=== PATIENT | female | born 1955 | race Caucasian/White ===

== ENCOUNTER → 2016-08-03 | Outpatient (CLI) | payer OTHER | LOC: CIMAGING 07:11 | DX: Z12.31 Encounter for screening mammogram for malignant neoplasm of breast (principal); Z80.3 Family history of malignant neoplasm of breast | CPT/HCPCS: G0202 ==

== ENCOUNTER → 2017-08-28 | Outpatient (CLI) | payer OTHER | LOC: CIMAGING 10:52 | PROVIDERS: ATTEND Family Medicine | DX: Z12.31 Encounter for screening mammogram for malignant neoplasm of breast (principal); Z80.3 Family history of malignant neoplasm of breast ==

== ENCOUNTER → 2018-06-20 | Day surgery (SDC) | payer OTHER ==
[~2018-06-20] MED LIST: LIDO/EPI 1% **for epidural** 30 ML SDV ONE; SODIUM TETRADECYL SULFATE 3% 2 ML VIAL IV ONE
== END | disposition home or self-care (01) ==
LOC: FIMAGING 11:45
PROVIDERS: ATTEND Radiology Diagnostic Radiology
DX: I83.891 Varicose veins of right lower extremity with other complications (principal)

== ENCOUNTER → 2018-07-03 | Outpatient (CLI) | payer OTHER | LOC: FIMAGING 15:26 ==

== ENCOUNTER → 2018-08-30 | Outpatient (CLI) | payer OTHER | LOC: CIMAGING 09:04 | PROVIDERS: ATTEND Family Medicine | DX: Z12.31 Encounter for screening mammogram for malignant neoplasm of breast (principal); Z80.3 Family history of malignant neoplasm of breast ==

== ENCOUNTER 2018-09-08 16:40 | Emergency (ER) | payer OTHER ==
[2018-09-08] MEDS ORDERED: NS 1,000 ML IV ONE (17:11)
[2018-09-08] MEDS ORDERED: ONDANSETRON 4 MG/2 ML VIAL IVP ONE (17:12)
[2018-09-08] MEDS ORDERED: ACETAMINOPHEN 500 MG TAB PO ONE (17:15)
[2018-09-08] MEDS ORDERED: ONDANSETRON 4 MG/2 ML VIAL ONE (17:17)
--- NOTE | 2018-09-08 17:50 | EDPHY ---
H & P Stated Complaint: vomiting, fever, headache Time Seen by Provider: 09/08/18 17:32 HPI/ROS: CHIEF COMPLAINT: Nausea, vomiting, diarrhea. HISTORY OF PRESENT ILLNESS: This is a 63-year-old medically stable woman who felt well last night when she went to bed. However she woke up around 2 in the morning with a sense of nausea and began vomiting. She has had at least 40 min trips to the bathroom to vomit although notably each time she would stay there for a little while. At no point there has been any blood, initially was food and then some foam. There has been no hematemesis or coffee-grounds There is also been some diarrhea however has not been as much. She describes be mushy. There has been no melena or bright lobe rectum. No abdominal pain Shortness school system. Has not had any specific known exposure however nonetheless there is lot get around. No travel outside the country last 3 months, antibiotic use, bad food from other sources, or poor water supply. In general she is healthy does not have a history of recurrent diarrhea. REVIEW OF SYSTEMS: Constitutional: No fever, no chills. Eyes: No discharge. ENT: No sore throat. Cardiovascular: No chest pain, no palpitations. Respiratory: No cough, shortness of breath, or wheezing. Gastrointestinal: See above Genitourinary: No hematuria or frequency. Musculoskeletal: No back pain. Skin: No rashes. Neurological: No headache. A 10 system review of systems was performed and is negative except for the noted findings in the HPI. Source: Patient Exam Limitations: No limitations - Personal History Current Tetanus Diphtheria and Acellular Pertussis (TDAP): Yes - Medical/Surgical History Hx Asthma: No Hx Chronic Respiratory Disease: No Hx Diabetes: No Hx Cardiac Disease: No Hx Renal Disease: No Hx Cirrhosis: No Hx Alcoholism: No Hx HIV/AIDS: No Hx Splenectomy or Spleen Trauma: No Other PMH: appy, - Family History Significant Family History: No pertinent family hx - Social History Smoking Status: Never smoked Alcohol Use: None Drug Use: None - Physical Exam Exam: General Appearance: Alert, no distress. Afebrile. Normal phonation. No respiratory distress. Eyes: Pupils equal and round no pallor or injection. No icterus ENT, Mouth: Mucous membranes moderately dry Pharynx without erythema or exudate. TM Clear. Neck: No adenopathy. Supple. No JVD. Trachea in midline. Respiratory: There are no retractions, lungs are clear to auscultation. Cardiovascular: Regular rate and rhythm, no murmurs Abdomen: Soft, no masses, bowel sounds normal. There is some mild vague tenderness no right lower quadrant without rebound or guarding. Of note, is that she has had her appendix out. Femoral pulses equal. Neurological: Ox3. No motor weakness. Sensation intact. Gait nl. Skin: Warm and dry, no rashes. Musculoskeletal: No joint swelling. Extremities: No edema. Psychiatric: Normal affect. Patient is oriented X 3. There is no agitation Constitutional: Initial Vital Signs Temperature (C) 38.4 C H 09/08/18 16:56 Heart Rate 92 09/08/18 16:56 Respiratory Rate 18 09/08/18 16:56 Blood Pressure 139/74 H 09/08/18 16:56 O2 Sat (%) 95 09/08/18 16:56 O2 Delivery Mode Room Air Allergies/Adverse Reactions: Penicillins Allergy (Intermediate, Verified 09/08/18 16:59) Hives QUATERNIUM 15 Allergy (Intermediate, Uncoded 09/08/18 16:59) ECZEMA Home Medications: Medication Instructions Recorded Lisinopril 09/08/18 Ondansetron Odt [Zofran Odt 4 mg 4 mg PO Q4 PRN #4 tab 09/08/18 (*)] Medical Decision Making ED Course/Re-evaluation: Upon triage she was given a IV Zofran and IV fluids. She felt quite a bit better. Overtime she is given a full L of fluids and felt markedly better and stable on her feet. Her exam remained benign with vague mild right lower quadrant tenderness without rebound or guarding. At this point in time I would not consider diverticulitis is a remote possibility although she would progress over the night and that might consider a CT scan at that point. She is to return in the morning if there is any ongoing pain. I have given her an outline of symptoms to watch for as well as a diet to implement tomorrow. Given the benign urine though concentrated I do not see any evidence to suggest a kidney stone nor UTI. Pt re-examined after [Zofran] [IV,]. Repeat exam of abdomen shows mild right lower quadrant tenderness without rebound or guarding. Clinical course, urine results and exam findings discussed with patient. Follow-up and return to Emergency Department precautions reviewed with patient. All of their questions were answered. The patient was discharged home in good condition. Differential Diagnosis: Differential diagnosis includes, but is not limited to: Gastroenteritis, dehydration, diverticulitis, hepatitis, pancreatitis, renal colic, kidney stones, ureterolithiasis, cholecystitis, gastritis, mesenteric adenitis, food poisoning, bacterial dysentery. - Data Points Medications Given: Discontinued Medications Acetaminophen (Tylenol) 1,000 mg PO EDNOW ONE Stop: 09/08/18 17:16 Last Admin: 09/08/18 18:00 Dose: 1,000 mg Sodium Chloride (Ns) 1,000 mls @ 0 mls/hr IV ONCE ONE PRN Reason: Wide Open Stop: 09/08/18 17:12 Last Admin: 09/08/18 17:16 Dose: 1,000 mls Ondansetron HCl (Zofran) 4 mg IVP EDNOW ONE Stop: 09/08/18 17:13 Last Admin: 09/08/18 17:18 Dose: 4 mg Ondansetron HCl (Zofran Odt 4 Mg Prepack#2) 1 btl TAKEHOME EDNOW ONE Stop: 09/08/18 18:32 Last Admin: 09/08/18 18:58 Dose: 1 btl Point of Care Test Results: Influenza PCR Flu Nasal Swab Collection Date 09/08/18 Flu Nasal Swab Collection Time 17:05 Influenza A Result Not Detected Influenza B Result Not Detected Urine Dip Collection Date 09/08/18 Collection Time 18:26 Specific [place] (1.002-1.030) 1.030 PH (5.0-7.5) 5.5 Leukocytes (Negative) Negative Nitrites (Negative) Negative Protein (Negative) Trace Glucose (Negative) Negative Ketones (Negative) Negative Urobilnogen (0.2-1.0 EU) 0.2 Bilirubin (Negative) Negative Blood (Negative) Negative Departure - Departure Disposition: Home, Routine, Self-Care Clinical Impression: Norovirus, Gastroenteritis Condition: Fair Instructions: Dehydration (ED), Gastroenteritis (DC), Acute Nausea and Vomiting (ED) Additional Instructions: This is a virus I suspect you to progressively get better and better over the next 12-24 hours. What little abdominal pain you have right now should disappear by tomorrow. However, if you're still ill with vomiting or abdominal pain tomorrow need to come in for recheck in the morning. Feel free to take fluids (Gatorade) although since you were given IV fluids here is not mandatory for uterus begin fluids until 6-12 hours from now. At that time you start taking clear liquids, then 6 hr later full liquids, then 6 hr later a soft diet. Take Zofran for her symptoms of nausea as well as loss of appetite. We can only give you 4 tablets to go home with. You are mildly contagious by way of stool over the next 4 weeks however he will be significant contagious for the next 36 hr. Thus, stay home. Do not go to school on Monday if he did not feel like her up to it. Do not go to jehovah's witness, [employer]orationist or rastafari tomorrow. Referrals: Jose Carlos Hagan DO [Primary Care Provider] - As per Instructions Stand Alone Forms: School Excuse Prescriptions: Ondansetron Odt [Zofran Odt 4 mg (*)] 4 mg PO Q4 PRN #4 tab PRN Reason: Nausea or vomiting
[2018-09-08 18:04] VITALS: BP 134/69
[2018-09-08] MEDS ORDERED: ONDANSETRON 4MG PREPACK#2 BTL TAKEHOME ONE (18:31)
== END 2018-09-08 18:45 | disposition home or self-care (01) ==
LOC: CED 16:40
DX: A08.11 Acute gastroenteropathy due to Norwalk agent (principal)
CPT/HCPCS: 87400-QW-ER; 96361-ER; 96374-ER; 99284-ER; J2405